=== PATIENT | female | born 1975 | race Caucasian/White ===

== ENCOUNTER 2024-06-23 16:44 | Emergency (ER) | payer SELFPAY ==
[2024-06-23 17:42] LABS: Absolute Basophils 0.1 K/uL (0-0.5); Absolute Eosinophils 0.1 K/uL (0-0.5); Absolute Lymphocytes (CBC) 1.7 K/uL (0.7-4.9); Absolute Monocytes 0.5 K/uL (0.1-1.3); Absolute Neutrophil 6.2 K/uL (1.8-8.0); Hematocrit 40.5 % (36.0-45.0); Hemoglobin 13.4 g/dL (12.0-15.0); Lymphocytes % 20.3 % (15.3-44.8); MCH 30.7 pg (27.0-35.0); MCHC 33.2 g/dL (32.0-36.0); MCV 92.5 fL (80-100); MPV 9.1 fL (7.6-11.3); Monocytes % 6.1 % (3.3-12.3); Neutrophils % 71.6 % (41.7-73.7); Platelets 279 thou/uL (152-406); RBC Red Blood Cell Count 4.38 M/uL (3.86-4.86); Red Cell Distribution Width 13.6 % (12.1-15.2)
[2024-06-23 17:50] LABS: PT Prothrombin Time 11.8 SECONDS (9.4-12.5); Protime INR 1.06
[2024-06-23 18:01] LABS: ALT/SGPT 40 U/L (13-56); AST/SGOT 26 U/L (15-37); Albumin 3.3 g/dL (3.4-5.0); Albumin/Globulin Ratio 0.8 (1.1-1.8); Alkaline Phosphatase 68 U/L (45-117); Anion Gap 9.5 mEq/L (5.0-15.0); BUN Blood Urea Nitrogen 11 mg/dL (7-18); Bicarbonate 24 mEq/L (21-32); Bilirubin Total 0.3 mg/dL (0.2-1.0); Glomerular Filtration Rate 102 ml/min (=/>90); Glucose Level 97 mg/dL (74-106); NT PRO-BNP 37 pg/mL (<125); Potassium 3.5 mEq/L (3.5-5.1); Protein, Total 7.3 g/dL (6.4-8.2); Sodium Level 140 mEq/L (136-145); Troponin High Sensitivity 4.7 pg/mL (<58.9)
[2024-06-23 18:06] LABS: Bilirubin Direct < 0.2 mg/dL (0-0.2); Bilirubin Indirect, Calculated 0.1 mg/dL (0.2-0.8)
--- NOTE | 2024-06-23 18:20 | RAD REPORT ---
EXAMINATION: ONE VIEW CHEST XR CLINICAL INDICATION: Female, 49 years old.,CHEST PAIN TECHNIQUE: Frontal chest projection is submitted. Examination is limited by patient positioning and t echnique. COMPARISON: No prior exam. FINDINGS: The lungs are well inflated and clear. No pneumothorax or sizable effusion. The heart is normal in s ize. Mediastinal contours are unremarkable. IMPRESSION: No acute intrathoracic abnormalities.
[2024-06-23] MEDS ORDERED: HYDROCODONE/APAP 7.5/325 MG TAB ONE (18:28)
--- NOTE | 2024-06-23 20:10 | RAD REPORT ---
EXAM: Angio Aorta For Dissection HISTORY: [facility] MAIN no DISSECTION Bed Name: 3 COMPARISON: None TECHNIQUE: Multiple contiguous axial images were obtained a CTA of the chest and abdomen with contras t per aortic dissection protocol. Sagittal and coronal 3-D MIP reformats were performed. One or more of the following dose reduction techniques were used: Automated exposure control, adjustment of the mA and kV according to patient size, and iterative reconstruction. Unless otherwise specified, incidental findings do not require dedicated imaging follow-up. FINDINGS: PULMONARY ARTERIES: Normal in caliber without filling defects to suggest pulmonary emboli. MEDIASTINUM: No hilar or mediastinal lymphadenopathy. LUNGS: No focal infiltrates or masses. PLEURAL SPACE: No pleural effusion or pneumothorax. Well-circumscribed ovoid left thyroid 1.2 cm nodule. LIVER: Unremarkable. KIDNEYS: Unremarkable. SPLEEN: Unremarkable. PANCREAS: Unremarkable. Status post cholecystectomy BOWEL: Unremarkable. RETROPERITONEUM: No lymphadenopathy BONES: Degenerative changes in the spine. ASCENDING THORACIC AORTA: Normal caliber without evidence of dissection or aneurysmal dilatation. DESCENDING THORACIC AORTA: Normal caliber without evidence of dissection or aneurysmal dilatation. ABDOMINAL AORTA: Normal caliber without evidence of dissection or aneurysmal dilatation. CELIAC TRUNK: Patent SMA: Patent GRISELDA: Patent RENAL ARTERIES: Bilateral single renal arteries without significant atherosclerotic disease IMPRESSION: No evidence of thoracic or abdominal aortic aneurysm or dissection. Incidentally noted left thyroid 1.2 cm hypoattenuating nodule, may deserve dedicated ultrasound evalu ation.
--- NOTE | 2024-06-23 20:25 | ER ---
Nurse's Notes [facility] Name: Clarke Yusuf Age: 49 yrs Sex: Female : 1975 Arrival Date: 06/23/2024 Time: 16:44 Bed 3 Private MD: Diagnosis: Pain in right shoulder-and right upper back;Essential (primary) hypertension Presentation: 06/23 16:59 Chief complaint: Patient states: right arm pain, thought it was a pinched nerve but its ko1 gotten worse, bp goes up has a nose bleed, it was better today but the shoulder hurts worse, occasional chest pain. Coronavirus screen: At this time, the client does not indicate any symptoms associated with coronavirus-19. Ebola Screen: No symptoms or risks identified at this time. Initial Sepsis Screen: Does the patient meet any 2 criteria? No. Patient's initial sepsis screen is negative. Does the patient have a suspected source of infection? No. Patient's initial sepsis screen is negative. Risk Assessment: Do you want to hurt yourself or someone else? Patient reports no desire to harm self or others. Onset of symptoms is unknown. 16:59 Method Of Arrival: Ambulatory ko1 16:59 Acuity: LAMBERT 3 ko1 Triage Assessment: 17:01 General: Appears in no apparent distress. Behavior is cooperative, anxious. Pain: Pain ko1 currently is 8 out of 10 on a pain scale. Pain began a month ago. Neuro: No deficits noted. 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 - Infectious Disease History:: Denies. - Social history:: Smoking status: Patient denies any tobacco usage or history of. Screenin:[address] [facility] ED Fall Risk Assessment (Adult) History of falling in the last 3 months, jb4 including since admission No falls in past 3 months (0 pts) Confusion or Disorientation No (0 pts) Intoxicated or Sedated No (0 pts) Impaired Gait No (0 pts) Mobility Assist Device Used No (0 pt) Altered Elimination No (0 pt) Score/Fall Risk Level 0 - 2 = Low Risk Oriented to surroundings, Maintained a safe environment. Abuse screen: Denies threats or abuse. Nutritional screening: No deficits noted. Tuberculosis screening: No symptoms or risk factors identified. Assessment: 17:48 General: Appears in no apparent distress. comfortable, Behavior is calm, cooperative, jb4 appropriate for age. Pain: Complains of pain in right scapular area, right subscapular area, thoracic area and right arm Pain does not radiate. Pain currently is 7 out of 10 on a pain scale. Quality of pain is described as aching. Neuro: Level of Consciousness is awake, alert, obeys commands, Oriented to person, place, time, situation. Cardiovascular: Patient's skin is warm and dry. Respiratory: Airway is patent Respiratory effort is even, unlabored, Respiratory pattern is regular, symmetrical. GI: No signs and/or symptoms were reported involving the gastrointestinal system. : No signs and/or symptoms were reported regarding the genitourinary system. EENT: No signs and/or symptoms were reported regarding the EENT system. Derm: Skin is intact, Skin is pink, warm \T\ dry. Musculoskeletal: Circulation, motion, and sensation intact. Range of motion: intact in all extremities. 19:58 Reassessment: Patient appears in no apparent distress at this time. No changes from cp4 previously documented assessment. Patient and/or family updated on plan of care and expected duration. Pain level reassessed. Patient is alert, oriented x 3, equal unlabored respirations, skin warm/dry/pink. Vital Signs: 16:59 BP 136 / 64; Pulse 77; Resp 18; Temp 98.8; Pulse Ox 100% ; ko1 19:25 BP 118 / 66; Pulse 74; Resp 18; Pulse Ox 100% ; cp4 20:00 BP 116 / 56; Pulse 72; Resp 16; Pulse Ox 98% on R/A; al5 20:30 BP 114 / 70; Pulse 73; Resp 17; Pulse Ox 95% on R/A; al5 ED Course: 16:47 Patient arrived in ED. mr 16:53 Lilly Lao PA-C is PHCP. sb4 16:53 Missael Mandujano MD is Attending Physician. sb4 17:01 Triage completed. ko1 17:01 Arm band placed on right wrist. Patient placed in an exam room, on a stretcher, on ko1 pulse oximetry, Patient notified of wait time. 17:10 Xavier Haley, RN is Primary Nurse. jb4 17:38 Basic Metabolic Panel Sent. jb4 17:38 CBC with Diff Sent. jb4 17:38 LFT's Sent. jb4 17:38 Magnesium Sent. jb4 17:38 NT PRO-BNP Sent. jb4 17:38 PT-INR Sent. jb4 17:38 Troponin HS Sent. jb4 17:38 No provider procedures requiring assistance completed. Missed attempt(s): 18 gauge in jb4 right antecubital area. Bleeding controlled, band aid applied, catheter tip intact. 17:48 Patient has correct armband on for positive identification. Bed in low position. Call jb4 light in reach. Side rails up X 1. Provided Education on: plan of care. 17:59 XRAY Chest (1 view) In Process Unspecified. EDMS 18:30 Accessed peripheral vein via ultrasound, utilizing dynamic ultrasound technique Clean \T\ cm10 dry. Dressing intact. Good blood return. Flushes easily. 20G left forearm. 19:15 CT Aorta for Dissection In Process Unspecified. EDMS 20:53 IV discontinued, intact, bleeding controlled, No redness/swelling at site. Pressure al5 dressing applied. Administered Medications: 18:31 Drug: Hydrocodone-Acetaminophen PO (7.5 mg-325 mg) 1 tabs PO once Route: PO; jb4 20:55 Follow up: Response: No adverse reaction; Pain is decreased al5 Medication: 17:48 VIS not applicable for this client. jb4 Outcome: 20:24 Discharge ordered by MD. sb4 20:54 Discharged to home ambulatory, with significant other, al5 20:54 Condition: good 20:54 Discharge instructions given to patient, significant other, Instructed on discharge instructions, follow up and referral plans. medication usage, Demonstrated understanding of instructions, follow-up care, medications, Prescriptions given X 2, 20:54 Patient left the ED. al5 Signatures: Dispatcher [employer] EDOR Julia Albarado, Reg Reg mr Xavier Haley, RN RN jb4 Giana Sherman RN RN [email or web address] Lilly Lao, PA-C PA-C [email or web address] Eliana English RN RN cm10 Rachel Cruz cp4 Sheyla Rios RN RN al5
--- NOTE | 2024-06-23 20:25 | EDPHYS ---
Physician Documentation [facility] Name: Clarke Yusuf Age: 49 yrs Sex: Female : 1975 Arrival Date: 06/23/2024 Time: 16:44 Bed 3 Private MD: ED Physician Missael Mandujano HPI: 06/23 17:14 This 49 yrs old Female presents to ER via Ambulatory with complaints of High Blood sb4 Pressure, Headache, Arm Pain. 17:18 Patient reports right sided mid back pain that radiates to her right arm. States that sb4 she has had the pain intermittently for a few months now but it got worse yesterday. States that her blood pressure has also been running higher than usual and she had a right sided nosebleed yesterday. She reports a history of hypertension but has no other cardiac history. States that she has never seen a medical equipment sales. She does report a family history of heart disease. She denies any smoking or alcohol use. 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 - Infectious Disease History:: Denies. - Social history:: Smoking status: Patient denies any tobacco usage or history of. ROS: 17:18 Constitutional: Negative for fever, chills, and weight loss, sb4 17:18 Cardiovascular: Positive for chest pain, 17:18 Back: Positive for pain at rest, radiated pain, of the right subscapular area, 17:18 MS/extremity: Positive for injury or acute deformity, pain, of the right arm, 17:18 All other systems are negative, Exam: 17:18 Constitutional: This is a well developed, well nourished patient who is awake, alert, sb4 and in no acute distress. Head/Face: Normocephalic, atraumatic. Eyes: Extra-ocular motions intact. Periorbital areas with no swelling, redness, or edema. ENT: Mucous membranes moist. Cardiovascular: Regular rate and rhythm with a normal S1 and S2. Respiratory: No increased work of breathing, no retractions or nasal flaring. Abdomen/GI: Soft, non-tender, no distension. Skin: Warm, dry with normal turgor. Normal color with no rashes, no lesions, and no evidence of cellulitis. Vital Signs: 16:59 BP 136 / 64; Pulse 77; Resp 18; Temp 98.8; Pulse Ox 100% ; ko1 19:25 BP 118 / 66; Pulse 74; Resp 18; Pulse Ox 100% ; cp4 20:00 BP 116 / 56; Pulse 72; Resp 16; Pulse Ox 98% on R/A; al5 20:30 BP 114 / 70; Pulse 73; Resp 17; Pulse Ox 95% on R/A; al5 MDM: 17:03 Medical Screening Exam initiated sb4 20:26 Data reviewed: vital signs, nurses notes, lab test result(s), EKG, radiologic studies, sb4 and as a result, I will discharge patient. Counseling: I had a detailed discussion with the patient and/or guardian regarding the historical points, exam findings, and any diagnostic results supporting the discharge/admit diagnosis, lab results, radiology results, the need for outpatient follow up, a medical equipment sales, to return to the emergency department if symptoms worsen or persist or if there are any questions or concerns that arise at home. 06/23 17:14 Order name: Basic Metabolic Panel; Complete Time: 18:08 sb4 06/23 17:14 Order name: CBC with Diff; Complete Time: 17:53 sb4 06/23 17:14 Order name: LFT's; Complete Time: 18:08 sb4 06/23 17:14 Order name: Magnesium; Complete Time: 18:08 sb4 06/23 17:14 Order name: NT PRO-BNP; Complete Time: 18:08 sb4 06/23 17:14 Order name: PT-INR; Complete Time: 17:53 sb4 06/23 17:14 Order name: Troponin HS; Complete Time: 18:08 sb4 06/23 17:14 Order name: XRAY Chest (1 view); Complete Time: 18:22 sb4 06/23 17:14 Order name: CT Aorta for Dissection; Complete Time: 20:11 sb4 06/23 17:14 Order name: Cardiac monitoring; Complete Time: 17:38 sb4 06/23 17:14 Order name: EKG - Nurse/Tech; Complete Time: 17:38 sb4 06/23 17:14 Order name: IV Saline Lock; Complete Time: 19:03 sb4 06/23 17:14 Order name: Labs collected and sent; Complete Time: 17:38 sb4 06/23 17:14 Order name: O2 Per Protocol; Complete Time: 17:38 sb4 06/23 17:14 Order name: O2 Sat Monitoring; Complete Time: 17:38 sb4 EC:16 Rate is 69 beats/min. Rhythm is regular, Normal Sinus Rhythm. MD interval is normal at sb4 154 msec. QRS interval is normal at 94 msec. QT interval is normal at 436 msec. No Q waves. T waves are Normal. No ST changes noted. Clinical impression: Normal ECG and No evidence of ischemia. Interpreted by me. Reviewed by me. Administered Medications: 18:31 Drug: Hydrocodone-Acetaminophen PO (7.5 mg-325 mg) 1 tabs PO once Route: PO; jb4 20:55 Follow up: Response: No adverse reaction; Pain is decreased al5 Disposition Summary: 06/23/24 20:24 Discharge Ordered Notes: Location: Home sb4 Problem: new sb4 Symptoms: have improved sb4 Condition: Stable sb4 Diagnosis - Pain in right shoulder - and right upper back sb4 - Essential (primary) hypertension sb4 Followup: sb4 - With: Emergency Department - When: As needed - Reason: Trouble breathing, Worsening of condition Discharge Instructions: - Discharge Summary Sheet sb4 - Musculoskeletal Pain sb4 - Nonspecific Chest Pain, Adult, [id number] sb4 Forms: - Patient Portal Instructions sb4 - Leadership Thank You Letter sb4 Prescriptions: - Cyclobenzaprine 10 mg Oral Tablet - take 1 tablet ORAL route every 8 hours As needed; 30 tablet; Refills: 0, sb4 Product Selection Permitted - Diclofenac Sodium 75 mg Oral Tablet Sustained Release - take 1 tablet ORAL route 2 times per day; 30 tablet; Refills: 0, Product sb4 Selection Permitted Addendum: 06/25/2024 07:24 Co-signature as Attending Physician, Missael Mandujano MD I reviewed the patient's care r n provided by the Advanced Practice Provider and agree with the diagnosis and treatment plan. Signatures: Dispatcher [employer] Missael Contreras MD MD rn Bryson, James, RN RN jb4 Giana Sherman RN RN ko1 Lilly Lao PA-C PACammy sb4 Sheyla Rios RN al5 Corrections: (The following items were deleted from the chart) 06/23 17:14 17:14 BASIC METABOLIC PANEL+C.LAB.BRZ ordered. EDMS EDMS 17:14 17:14 CBC+H.LAB.BRZ ordered. EDMS EDMS 17:14 17:14 HEPATIC FUNCTION+C.LAB.BRZ ordered. EDMS EDMS 17:14 17:14 MAGNESIUM+C.LAB.BRZ ordered. EDMS EDMS 17:14 17:14 PROBNP+C.LAB.BRZ ordered. EDMS EDMS 17:14 17:14 PROTIME (+INR)+COAG.LAB.BRZ ordered. EDMS EDMS 17:14 17:14 Troponin High Sensitivity+C.LAB.BRZ ordered. EDMS EDMS 17:14 17:14 Chest Single View+RAD.RAD.BRZ ordered. EDMS EDMS 17:14 17:14 Angio Aorta For Dissection+CT.RAD.BRZ ordered. EDMS EDMS
[2024-06-24 04:11] VITALS: TEMP 98.8
[2024-06-24 04:15] VITALS: BP 114/70; O2SAT 95
== END 2024-06-23 20:54 | disposition home or self-care (01) ==
LOC: ER 16:44
DX: M25.511 Pain in right shoulder (principal); M54.9 Dorsalgia, unspecified; I10 Essential (primary) hypertension
CPT/HCPCS: 36415; 71045; 71275; 74175; 80048; 80076; 83735; 83880; 84484; 85025; 85610; 99284; Q9967